=== PATIENT | male | born 1945 | race Two or more races ===

== ENCOUNTER 2017-05-25 20:52 | Emergency (ER) | payer OTHER, MEDICAID ==
[2017-05-25 20:58] VITALS: BP 159/93; BMI 30.4
[2017-05-25] MEDS ORDERED: ZOFRAN INJ 4 MG VIAL ONE (21:25)
[2017-05-25] MEDS ORDERED: MORPHINE SULFATE INJ 4 MG ONE (21:25)
--- NOTE | 2017-05-25 21:26 | DR.GENAD ---
HPI - PCP Primary Care Physician: robby Farrar HPI Comment HPI Comment: HISTORY BELOW. - Complaint/Symptoms Chief Complaint Doctors Comments: ABDOMINAL PAIN TIMES 2 DAYS. TODAY NAUSEA ALSO. DIFFICLUTY HAVING BM. NO FEVER OR DYSURIA. TOOK BOTTLE OF MAG CITRATE. NO GOOD RESPONSE SO FAR. INCREASING ABDOMINAL PAIN. Chief Complaint:: UNSURE OF LAST NORMAL BOWEL MOVEMENT, LAST 2 DAYS HAS HAD A SMALL BOWEL MOVEMENT BUT TODAY NO BOWEL MOVEMENT. C/O ABD PAIN. Self Treatment fo Chief Complaint: 1 BOTTLE OF MAG CITRATE - Nurses notes reviewed Nurses Notes Review: Yes - Source History Provided: Patient, Family Member - Mode of Arrival Mode of Arrival: Ambulatory - Timing Onset of Chief Complaint: 05/25/17 Came on: Suddenly - Duration Duration: Constant Duration: Days - Severity Severity: Moderate PMH - PMH Past Medical History: Yes Past Medical History Comment: ALLERGIES Past Surgical History: Yes Surgical History: Ortho Surgery Past Surgical History Comment: RIGHT KNEE - Family History History of Family Medical Conditions: No - Social History Does patient currently use any type of tobacco product: No Have you used tobacco products in the last 12 months: No Type of Tobacco Use: None Does any household member use tobacco: No Alcohol Use: None Do you use any recreational Drugs:: No Lives With: Spouse, Family Lives Where: Home - infectious screening Have you traveled outside the country in the last 6 months?: No Isolation: Standard ROS - Review of Systems Constitutional: No Symptoms Reported Eyes: No Symptoms Reported ENTM: No Symptoms Reported Respiratoy: No Symptoms Reported Cardiovascular: No Symptoms Reported Gastrointestinal/Abdominal: Abdominal Pain, Nausea Genitourinary: No Symptoms Reported. negative: Dysuria, Frequency, Hematuria Neurological: No Symptoms Reported Musculoskeletal: No Symptoms Reported Integumentary: No Symptoms Reported Hematologic/Lymphatic: No Symptoms Reported Endocrine: No Symptoms Reported All Other Systems: Reviewed and Negative PE - Vital Signs Vitals: Temperature 98.2 F Pulse Rate 91 Respiratory Rate 20 Blood Pressure 159/93 O2 Sat by Pulse Oximetry 95 - General Limitations: No Limitations General Appearance: Alert - Head Head Exam: Normal Inspection - Eyes Eye exam: Normal Appearance - ENT ENT Exam: Normal External Ear Exam External Ear Exam: Normal External Inspection TM/Canal Exam: Bilateral Normal Nose Exam: Normal Nose Exam Mouth Exam: Normal Inspection Throat Exam: Normal Inspection - Neck Neck Exam: Trachea Midline - Chest Chest Inspection: Symmetric Chest Wall Rise - Respiratory Respiratory Exam: Normal Lung Sounds Bilat Respiratory Exam: Bilateral Clear to Auscultation - Cardiovascular Cardiovascular Exam: Regular Rate, Normal Rhythm, Normal Heart Sounds - Abdominal Exam Abdominal Exam: Normal Bowel Sounds, Soft, Tenderness Abdominal Tenderness: Diffuse, Moderate - Extremities Extremities Exam: Normal Inspection - Back Back Exam: Normal Inspection - Neurologic Neurological Exam: Alert, Oriented X3 - Psychiatric Psychiatric Exam: Normal Affect, Normal Mood - Skin Skin Exam: Normal Color MDM - Additional Information Additional Information Obtained From: Family - Differential Diagnosis Differential Diagnosis: ABDOMINAL PAIN, CONSTIPATION, BOWEL OBSTRUCTION, DIVERTICULITIS, UTI Course - Treatment Treatment: SEE ORDERS. - Reevaluation 1st: Improved (IM PAIN MED, PAIN IMPROVING.) - Education/Counseling Education/Counseling: Patient, Family, Education Educated On: Treatment, Diagnosis, Needs for Follow Up ROR - Labs Reviewed Laboratory Results Reviewed?: Yes Result Diagrams: 05/25/17 21:20 05/25/17 21:20 Laboratory: WBC 12.3 X10^3/uL (3.6-10.0) H 05/25/17 21:20 RBC 5.05 X10^6/uL (4.7-6.0) 05/25/17 21:20 Hgb 15.9 g/dL (13.5-18.0) 05/25/17 21:20 Hct 46.5 % (42.0-54.0) 05/25/17 21:20 MCV 92.0 fL (80.0-100.0) 05/25/17 21:20 MCH 31.5 pg (27.0-34.0) 05/25/17 21:20 MCHC 34.3 g/dL (33.0-35.0) 05/25/17 21:20 RDW 13.6 % (11.6-16.5) 05/25/17 21:20 Plt Count 213 X10^3/uL (150.0-450.0) 05/25/17 21:20 MPV 9.0 fL (7.4-11.0) 05/25/17 21:20 Neut % 78.4 % (42.0-75.0) H 05/25/17 21:20 Lymph % 10.1 % (21.0-51.0) L 05/25/17 21:20 [place] % 11.1 % (0.0-13.0) 05/25/17 21:20 Eos % 0.1 % (0.9-2.9) L 05/25/17 21:20 Baso % 0.3 % (0.2-1.0) 05/25/17 21:20 Neut # 9.6 x10^3/uL (2.2-4.8) H 05/25/17 21:20 Lymph # 1.2 X10^3/uL (1.3-2.9) L 05/25/17 21:20 [place] # 1.4 x10^3/uL (0.3-0.8) H 05/25/17 21:20 Eos # 0.0 x10^3/uL (0.0-0.2) 05/25/17 21:20 Baso # 0.0 X10^3/uL (0.0-0.1) 05/25/17 21:20 Absolute Nucleated RBC 0.1 /100WBC 05/25/17 21:20 Sodium 132 mmol/L (136-145) L 05/25/17 21:20 Corrected Sodium 132 mmol/L (136-145) L 05/25/17 21:20 Potassium 3.7 mmol/L (3.5-5.1) 05/25/17 21:20 Chloride 98 mmol/L (98-107) 05/25/17 21:20 Carbon Dioxide 25.3 mmol/L (21-32) 05/25/17 21:20 BUN 13 mg/dL (7-18) 05/25/17 21:20 Creatinine 0.91 mg/dL (0.70-1.30) 05/25/17 21:20 Est GFR (MDRD) Af Amer > 60 (>60) 05/25/17 21:20 Est GFR (MDRD) Non-Af > 60 (>60) 05/25/17 21:20 Glucose 114 mg/dL (65-99) H 05/25/17 21:20 Calcium 8.9 mg/dL (8.5-10.1) 05/25/17 21:20 Corrected Calcium TNP 05/25/17 21:20 Total Bilirubin 0.60 mg/dL (0.2-1.0) 05/25/17 21:20 AST 22 Units/L (15-37) 05/25/17 21:20 ALT 32 Units/L (12-78) 05/25/17 21:20 Alkaline Phosphatase 81 Units/L (46-116) 05/25/17 21:20 Total Protein 7.9 g/dL (6.4-8.2) 05/25/17 21:20 Albumin 4.1 g/dL (3.4-5.0) 05/25/17 21:20 Globulin 3.8 g/dL (2.5-4.5) 05/25/17 21:20 Albumin/Globulin Ratio 1.1 Ratio (1.1-2.1) 05/25/17 21:20 Amylase 60 Units/L (25-115) 05/25/17 21:20 Lipase 106 Units/L (73-393) 05/25/17 21:20 Specimen Type Clean catch urine 05/25/17 22:49 Urine Color Yellow (YELLOW) 05/25/17 22:49 Urine Appearance Clear (CLEAR) 05/25/17 22:49 Urine pH 5.0 (5.0 - 8.0) 05/25/17 22:49 Ur Specific [place] 1.010 (1.000-1.030) 05/25/17 22:49 Urine Protein Negative (NEGATIVE) 05/25/17 22:49 Urine Glucose (UA) Negative (NEGATIVE) 05/25/17 22:49 Urine Ketones Negative (NEGATIVE) 05/25/17 22:49 Urine Occult Blood Negative (NEGATIVE) 05/25/17 22:49 Urine Nitrite Negative (NEGATIVE) 05/25/17 22:49 Urine Bilirubin Negative (NEGATIVE) 05/25/17 22:49 Urine Urobilinogen Normal (NORMAL) 05/25/17 22:49 Ur Leukocyte Esterase 1+ (NEGATIVE) 05/25/17 22:49 Urine RBC 0-2 /HPF (NEGATIVE) 05/25/17 22:49 Urine WBC 0-1 /HPF (NEGATIVE) 05/25/17 22:49 Ur Squamous Epith Cells Negative /HPF (NEGATIVE) 05/25/17 22:49 Amorphous Sediment Trace /HPF (NEGATIVE) 05/25/17 22:49 Urine Bacteria Negative /HPF (NEGATIVE) 05/25/17 22:49 Ur Culture Indicated? No/not indicated 05/25/17 22:49 - XRAY XRAY Interpreted by: Radiologist XRAY Findings: REPORT DISCUSS WITH PATIENT. - Diagnosis Discharge Problem: Abdominal pain Qualifiers: Abdominal location: generalized Qualified Code(s): R10.84 - Generalized abdominal pain Constipation Qualifiers: Constipation type: unspecified constipation type Qualified Code(s): K59.00 - Constipation, unspecified - Discharge Plan Disposition: HOME, SELF-CARE Condition: Stable - Follow ups/Referrals Follow ups/Referrals: ASHLEY REA [Primary Care Provider] - 3 days - Instructions Instructions: Constipation, Adult, [id number], Abdominal Pain, Adult, Easy-to -Read Additional Instructions: RETURN TO ED IF WORSE.
[2017-05-25] MEDS ORDERED: MORPHINE SULFATE INJ 4 MG IVP ONE (21:27)
[2017-05-25] MEDS ORDERED: ZOFRAN INJ 4 MG VIAL IVP ONE (21:27)
[2017-05-25 21:36] LABS: BASOPHILS % (AUTO) 0.3 % (0.2-1.0); EOSINOPHILS % (AUTO) 0.1 % (0.9-2.9); HEMATOCRIT 46.5 % (42.0-54.0); HEMOGLOBIN 15.9 g/dL (13.5-18.0); LYMPHOCYTES # (AUTO) 1.2 X10^3/uL (1.3-2.9); LYMPHOCYTES % (AUTO) 10.1 % (21.0-51.0); MEAN CORPUSCULAR HEMOGLOBIN 31.5 pg (27.0-34.0); MEAN CORPUSCULAR HGB CONC 34.3 g/dL (33.0-35.0); MONOCYTES # (AUTO) 1.4 x10^3/uL (0.3-0.8); MONOCYTES % (AUTO) 11.1 % (0.0-13.0); NEUTROPHILS # (AUTO) 9.6 x10^3/uL (2.2-4.8); NEUTROPHILS % (AUTO) 78.4 % (42.0-75.0); PLATELET COUNT 213 X10^3/uL (150.0-450.0); RED BLOOD COUNT 5.05 X10^6/uL (4.7-6.0); RED CELL DISTRIBUTION WIDTH 13.6 % (11.6-16.5); WHITE BLOOD COUNT 12.3 X10^3/uL (3.6-10.0)
[2017-05-25 22:13] LABS: ALANINE AMINOTRANSFERASE 32 Units/L (12-78); ALBUMIN 4.1 g/dL (3.4-5.0); ALKALINE PHOSPHATASE 81 Units/L (46-116); AMYLASE 60 Units/L (25-115); ASPARTATE AMINO TRANSFERASE 22 Units/L (15-37); BLOOD UREA NITROGEN 13 mg/dL (7-18); CALCIUM 8.9 mg/dL (8.5-10.1); CARBON DIOXIDE 25.3 mmol/L (21-32); CHLORIDE 98 mmol/L (98-107); COR NA(FOR HYPERGLY) 132 mmol/L (136-145); CREATININE 0.91 mg/dL (0.70-1.30); LIPASE 106 Units/L (73-393); SODIUM 132 mmol/L (136-145); TOTAL PROTEIN 7.9 g/dL (6.4-8.2); eGFR BLACK RACES > 60 (>60); eGFR NON BLACK RACES > 60 (>60)
[2017-05-25 22:53] LABS: BILIRUBIN,URINE NEGATIVE (NEGATIVE); BLOOD/HEMOGLOBIN,URINE NEGATIVE (NEGATIVE); GLUCOSE, URINE NEGATIVE (NEGATIVE); KETONES,URINE NEGATIVE (NEGATIVE); LEUKOCYTE ESTERASE ,URINE 1+ (NEGATIVE); NITRITES,URINE NEGATIVE (NEGATIVE); PROTEIN,URINE NEGATIVE (NEGATIVE); UROBILINOGEN,URINE NORMAL (NORMAL)
--- NOTE | 2017-05-25 22:56 | CT ---
CT abdomen and pelvis without contrast Indication: Abdominal pain Comparison: 06/26/2016 Technique: Multiple axial images of the abdomen and pelvis were obtained from the lung bases to the pubic symphy sis without the administration of IV contrast. Findings: Lung bases are clear. Given limitations of a noncontrast examination no focal hepatic lesion is ident ified. The gallbladder, bile ducts, spleen, pancreas and adrenal glands are unremarkable given their noncontrast appearance. The right kidney demonstrates no evidence of nephrolithiasis or hydronephrosi s. There are 2 round hypoattenuating lesions within the upper pole the right kidney which are unchang ed from prior examination, these are too small actually characterize however likely represent cysts. Left kidney is not evidence of nephrolithiasis, hydronephrosis or mass. Urinary bladder is mildly dis tended. Prostate gland is normal. The rectum contains mild increased fecal material as does the dista l colon consistent with constipation. No bowel wall thickening or mass identified within the colon. T he appendix is normal. No right lower quadrant inflammatory change. Abdominal aorta is normal in [place] with scattered calcified atherosclerotic disease. There is a small left-sided fat containing ingu inal hernia. Review of bone windows demonstrates no acute osseous abnormality. Impression: Mild constipation otherwise no radiographic abnormality within the abdomen or pelvis. Reported By:
[2017-05-25 23:02] LABS: APPEARANCE,URINE CLEAR (CLEAR); COLOR,URINE YELLOW (YELLOW); RBC,URINE 0-2 /HPF (NEGATIVE)
[2017-05-25 23:03] LABS: AMORPHOUS SEDIMENT,UR TRACE /HPF (NEGATIVE); BACTERIA,URINE NEGATIVE /HPF (NEGATIVE); SQUAMOUS EPITHELIAL CELL,UR NEGATIVE /HPF (NEGATIVE)
== END 2017-05-25 23:35 | disposition home or self-care (01) ==
LOC: ER 21:07
DX: K59.09 Other constipation (principal); R10.84 Generalized abdominal pain
CPT/HCPCS: 36415; 74176; 80053; 81001; 82150; 83690; 85025; 96365; 96374; 96375; 99283; A4222; J2270; J2405